=== PATIENT | female | born 1975 | race Caucasian/White ===

== ENCOUNTER 2017-07-22 15:10 | Emergency (ER) | END 2017-07-22 16:30 | disposition home or self-care (01) ==

== ENCOUNTER 2018-01-27 14:39 | Emergency (ER) | END 2018-01-27 17:22 | disposition home or self-care (01) ==

== ENCOUNTER 2018-07-10 09:41 | Emergency (ER) | payer MEDICAID ==
[~2018-07-10] VITALS: Wt 85.0 kg
[~2018-07-10 09:41] MED LIST: AZIT250T PO; FLUT9.9S NASAL; NAPR-985 PO; PHEN30SP8 MM
[2018-07-10] MEDS ORDERED: KETOROLAC 30 MG INJ IM STA (11:11)
[2018-07-10] MEDS ORDERED: CYCL10TA7 PO (11:48)
[2018-07-10] MEDS ORDERED: IBUP-1542 PO (11:48)
--- NOTE | 2018-07-10 11:52 | ERD ---
ER Documentation Chief Complaint Chief Complaint DYSURIA SINCE LAST WEEK HPI 43-year old female presents with low back pain for the last week. She does a lot of lifting at work but denies any history of acute trauma. She also feels that she is urinating frequently. She is concerned she has a kidney infection as she was told she had a kidney for infection in the past. She points to her right L4-L5 and gluteal area or iliac areas as area of pain. Pain radiates to her right buttock and leg. She describes it in triage as 0 out of 10. ROS All systems reviewed and are negative except as per history of present illness. Medications Home Meds Active Scripts Cyclobenzaprine Hcl* (Cyclobenzaprine Hcl*) 10 Mg Tablet, 10 MG PO TID, #20 TAB Prov:PIA CORREA MD 07/10/18 Ibuprofen* (Motrin*) 600 Mg Tab, 600 MG PO Q6, #20 TAB Prov:PIA CORREA MD 07/10/18 Naproxen* (Naprosyn*) 500 Mg Tablet, 500 MG PO BID PRN for PAIN AND/OR INFLAMMATION, #30 TAB Prov:STEPHEN BADILLO PA-C 01/27/18 Fluticasone Propionate (Flonase Allergy Relief) 9.9 Ml [place].susp, 1 SPRAY NASAL BID, #1 BOTTLE TO EACH NOSTRIL Prov:RAQUEL,AVI 07/22/17 Phenol/Glycerin (Chloraseptic Max [place]) 30 Ml [place], 5 SPRAY MM Q2H PRN for SORE THROAT, #1 BOTTLE Prov:RAQUEL,AVI 07/22/17 Azithromycin* (Zithromax*) 250 Mg Tablet, 250 MG PO .ZPACK DIRECTED, #6 TAB TAKE 500 MG (2 TABS) THE FIRST DAY THEN 250 MG (1 TAB) DAYS 2-5 Prov:RAQUEL,AVI 07/22/17 Allergies Allergies: Coded Allergies: No Known Allergy (Verified , 01/27/18) PMhx/Soc Medical and Surgical Hx: pt denies Medical Hx, pt denies Surgical Hx Hx Alcohol Use: No Hx Substance Use: No Hx Tobacco Use: No Smoking Status: Never smoker FmHx Family History: No diabetes, No coronary disease, No other Physical Exam Vitals Vital Signs Date Temp Pulse Resp B/P (MAP) Pulse Ox O2 O2 Flow FiO2 Time Delivery Rate 07/10/18 98.9 71 18 131/82 99 Room Air 11:55 (98) 07/10/18 98.9 79 18 130/71 99 09:42 (90) Physical Exam Const: No acute distress Head: Atraumatic Eyes: Normal Conjunctiva ENT: Normal External Ears, Nose and Mouth. Neck: Full range of motion. No meningismus. Resp: Clear to auscultation bilaterally Cardio: Regular rate and rhythm, no murmurs Abd: Soft, non tender, non distended. Normal bowel sounds Skin: No petechiae or rashes Back: No midline or flank tenderness. Tenderness right L4 L5-S1 area lumbar paraspinous muscles. Positive straight leg raise on the right. Ext: No cyanosis, or edema Neur: Awake and alert. Normal gait. No appreciable focal neurologic deficits. Psych: Normal Mood and Affect Results 24 hrs Laboratory Tests Test 07/10/18 11:21 07/10/18 11:38 POC Beta HCG, Qualitative NEGATIVE Bedside Urine pH (LAB) 6.5 Bedside Urine Protein (LAB) Negative Bedside Urine Glucose (UA) Negative Bedside Urine Ketones (LAB) 1+ Bedside Urine Blood Negative Bedside Urine Nitrite (LAB) Negative Bedside Urine Leukocyte Esterase (L Negative Current Medications Medications Dose Sig/Sd Start Time Status Last (Trade) Ordered Route PRN Stop Time Admin Dose Reason Admin Ketorolac 30 mg ONCE STAT 07/10/18 DC 07/10/18 Tromethamine IM 11:11 07/10/18 11:25 (Toradol) 11:13 Procedures/MDM Urine shows no leukocytes, nitrites, glucose, hemoglobin. HCG negative. Patient was given Toradol 30 mg IM. Patient presents with right-sided low back pain. She is concerned about a kidney infection but her urine is normal. Pain is not in the area of kidneys. Pain is likely musculoskeletal, lumbar strain or sciatica. No signs of cauda equina syndrome, epidural abscess, deficits, ischemia, additional complications. Will treat with ibuprofen, Flexeril, instructions for back exercises, primary care follow-up and return precautions. The patient was stable with no new complaints during the ER course. Clinically, there is no current evidence to suggest meningitis, sepsis, acute abdomen, pneumonia, stroke, acute coronary syndrome, pulmonary embolism, aortic dissection or any other emergent condition appearing to require further evaluation or hospitalization. Patient counseled regarding my diagnostic imp ression and care plan. Prior to discharge all questions answered. Pt agrees with treatment plan and understands strict return precautions. Pt is instructed to follow up with primary care provider within 24-48 hours. Precautionary instructions provided including instructions to return to the ER if not improving or for any worsening or changing symptoms or concerns. Departure Diagnosis: Primary Impression: Back pain Back pain location: low back pain Chronicity: acute Back pain laterality: right Sciatica presence: with sciatica Sciatica laterality: sciatica of right side Qualified Codes: M54.41 - Lumbago with sciatica, right side Condition: Stable Patient Instructions: Back Exercises, Lumbar, Back Pain W/ Sciatica [facility] Usted se clement hecho un examen mdico de control que le indica que no est en roel condicin que requiera tratamiento urgente en el Departamento de Emergencia. Un estudio ms profundo y el tratamiento de hayward condicin pueden esperar sin ningn riesgo hasta que usted sea atendida/o en el consultorio de hayward mdico o roel clnica. Es responsabilidad suya arreglar roel mark para el seguimiento del alejandro. MANEJO DE CONDICIONES NO URGENTES EN EL FUTURO 1) Si usted tiene un mdico de atencin primaria: Usted debera llamar a hayward mdico de atencin primaria antes de venir al departamento de emergencia. Despus de las horas de consultorio, hayward doctor o hayward asociado/a est disponible por telfono. El mdico o enfermero de donaldo en el servicio telefnico puede asesorarle por sherrie medio para atender el problema, o alejandro contrario se puede programar roel mark. 2) Si usted no tiene un mdico de atencin primaria: Llame al mdico o clnica de referencia que aparece abajo lisa las horas de consultorio para hacer roel mark para que le vean. CLINICAS: [facility] [phone] [facility] [phone] [facility] [phone] [place] [id number] [phone] [place] [phone] [facility]. [phone] [address] Additional Instructions: orina / rinones normal. dolor es de espalda. Cheque otro vez con hayward doctor primario en el proximo stanley or regresa para mas o nueva simptomas. PIA CORREA MD Jul 10, 2018 11:51
[2018-07-10 11:55] VITALS: BP 131/82; PULSE 71; RESP 18
== END 2018-07-10 12:20 | disposition home or self-care (01) ==
LOC: FTE 09:41
DX: M54.41 Lumbago with sciatica, right side (principal)
CPT/HCPCS: 81003; 81025; 96372; J1885; Z7502

== ENCOUNTER 2018-07-13 14:31 | Emergency (ER) | payer MEDICAID ==
[~2018-07-13] VITALS: Ht 157.5 cm; Wt 57.1 kg
[~2018-07-13 14:31] MED LIST changes: +CYCL10TA7 PO; +IBUP-1542 PO
[2018-07-13 14:35] VITALS: BP 119/82; PULSE 72; RESP 20; Ht 157.5 cm; Wt 57.1 kg
[2018-07-13] MEDS ORDERED: KETOROLAC 60 MG INJ IM STA (16:01)
[2018-07-13] MEDS ORDERED: HYDR-4011 PO (16:06)
[2018-07-13] MEDS ORDERED: CYCL10TA7 PO (16:06)
[2018-07-13] MEDS ORDERED: DICL100G37 TOP (16:06)
[2018-07-13] MEDS ORDERED: NAPR-985 PO (16:06)
--- NOTE | 2018-07-13 16:11 | ERD ---
ER Documentation Chief Complaint Chief Complaint Complains of back pain x 3 days HPI This is a 43-year-old female presents ED with complaints of low back pain times 4 days. Patient states that 4 days ago her pots and pans He fell on the floor and when she went down to pick them up she hurt her low back. Patient denies any fever, chills, chest pain, shortness breath, dysuria, hematuria, diarrhea, constipation, bowel/bladder incontinence, tingling, numbness sensation, saddle paresthesias and other symptoms. No history of IV drug use. ROS All systems reviewed and are negative except as per history of present illness. Medications Home Meds Active Scripts Hydrocodone/Acetaminophen ([place] 5-325 Tablet) 1 Each Tablet, 1 TAB PO Q6H PRN for PAIN, #3 TAB Prov:EDWAR KYLE PA-C 07/13/18 Diclofenac Sodium* (Voltaren* Gel) 1% -100 Gm Gel, 2 GM TOP QID, #1 TUB Prov:EDWAR KYLE PA-C 07/13/18 Cyclobenzaprine Hcl* (Cyclobenzaprine Hcl*) 10 Mg Tablet, 10 MG PO TID, #15 TAB Prov:EDWAR KYLE PA-C 07/13/18 Naproxen* (Naprosyn*) 500 Mg Tablet, 500 MG PO BID PRN for PAIN AND/OR INFLAMMATION, #30 TAB Prov:EDWAR KYLE PA-C 07/13/18 Cyclobenzaprine Hcl* (Cyclobenzaprine Hcl*) 10 Mg Tablet, 10 MG PO TID, #20 TAB Prov:PIA CORREA MD 07/10/18 Ibuprofen* (Motrin*) 600 Mg Tab, 600 MG PO Q6, #20 TAB Prov:PIA CORREA MD 07/10/18 Naproxen* (Naprosyn*) 500 Mg Tablet, 500 MG PO BID PRN for PAIN AND/OR INFLAMMATION, #30 TAB Prov:STEPHEN BADILLO PA-C 01/27/18 Fluticasone Propionate (Flonase Allergy Relief) 9.9 Ml [place].susp, 1 SPRAY NASAL BID, #1 BOTTLE TO EACH NOSTRIL Prov:AVI GARCÍA 07/22/17 Phenol/Glycerin (Chloraseptic Max [place]) 30 Ml [place], 5 SPRAY MM Q2H PRN for SORE THROAT, #1 BOTTLE Prov:RAQUEL,AVI 07/22/17 Azithromycin* (Zithromax*) 250 Mg Tablet, 250 MG PO .ESSENCE DIRECTED, #6 TAB TAKE 500 MG (2 TABS) THE FIRST DAY THEN 250 MG (1 TAB) DAYS 2-5 Prov:RAQUEL,AVI 07/22/17 Allergies Allergies: Coded Allergies: No Known Allergy (Verified , 01/27/18) PMhx/Soc Medical and Surgical Hx: pt denies Medical Hx, pt denies Surgical Hx Hx Alcohol Use: No Hx Substance Use: No Hx Tobacco Use: No FmHx Family History: No diabetes Physical Exam Vitals Vital Signs Date Temp Pulse Resp B/P (MAP) Pulse Ox O2 O2 Flow FiO2 Time Delivery Rate 07/13/18 98.5 72 20 119/82 98 14:35 (94) Physical Exam Physical Exam Vitals signs: Reviewed by me. General: Well developed, well nourished, in no acute distress. Patient is awake and alert. Head: Normocephalic, atraumatic. Eyes: Normal conjunctiva, Pupils PERRLA, EOM intact grossly ENT: Pharynx is clear, Moist mucous membranes, external ears, nose and mouth normal Neck: Supple, no masses, lymphadenopathy or JVD Respiratory: Clear to auscultation bilaterally with no wheezing, rhonchi, rales, no distress Cardiovascular: RRR, no murmurs, rubs, or gallops Back: No midline tenderness. No thoracic or lumbar midline tenderness, there is mild tenderness palpation along the paravertebral muscles in the lumbar spine, no decreased range of motion flexion, extension and left and right lateral rotation Neurologic: Alert and oriented, moving all extremities, normal speech, no focal weakness, no cerebellar signs. Normal mentation Skin: warm and dry, No rash Psych: Normal mood Results 24 hrs Current Medications Medications Dose Sig/Sd Start Time Status Last (Trade) Ordered Route PRN Stop Time Admin Dose Reason Admin Ketorolac 60 mg ONCE STAT 07/13/18 DC Tromethamine IM 16:01 (Toradol) 07/13/18 16:02 1 tab ONCE ONCE 07/13/18 DC Acetaminophen PO 16:30 / 07/13/18 16:30 Hydrocodone Bitart ([place] (5/325)) 10 mg ONCE ONCE 07/13/18 Cyclobenzapri PO 16:30 ne HCl 07/13/18 16:31 (Flexeril) Procedures/MDM ER COURSE: The patient was given [Toradol and Flexeril The medication was well tolerated and the patient reports improvement in symptoms. The patient was stable throughout ED course. I kept the patient and/or family informed of laboratory and diagnostic imaging results throughout the emergency room course. The patient was promptly evaluated and a treatment plan was devised based on H&P and other data. This plan was discussed with the patient who agreed and had no further questions or concerns prior to discharge. MEDICAL DECISION MAKIN-year-old female presents to ED with low back pain times 4 days. Given mechanism of injury and location of back pain being along the paravertebral muscles this is likely a muscle strain or muscle related pain. History and physical examination other data not consistent with processing including cauda equina syndrome, cord compression, infiltrative etiology, infectious etiology, epidural abscess, fracture, obstructive pyelonephritis, abdominal aortic aneurysm. Vitals are stable and patient can be managed outpatient with close follow-up. Advised patient to follow up with primary care in the next 48 hours. return to ED with any worsening symptoms DISPOSITION PLAN: We discussed follow up with the patient's primary care doctor within 24 to 48 hours. Patient counseled regarding my diagnostic impression and care plan. Pr ior to discharge all questions answered. Pt agrees with treatment plan and understands strict return precautions. Precautionary instructions provided including instructions to return to the ER if not improving or for any worsening or changing symptoms or concerns. SPECIALIST FOLLOW UP RECOMMENDED: None Patient has been advised to follow up with primary care in 1-2 days. Disclaimer: Inadvertent spelling and grammatical errors are likely due to EHR/dictation software use and do not reflect on the overall quality of patient care. Also, please note that the electronic time recorded on this note does not necessarily reflect the actual time of the patient encounter. Departure Diagnosis: Primary Impression: Back pain Back pain location: low back pain Chronicity: acute Back pain laterality: bilateral Sciatica presence: without sciatica Qualified Codes: M54.5 - Low back pain Condition: Stable Patient Instructions: Back Pain (Acute Or Chronic) Referrals: [facility] Usted se clement hecho un examen mdico de control que le indica que no est en roel condicin que requiera tratamiento urgente en el Departamento de Emergencia. Un estudio ms profundo y el tratamiento de hayward condicin pueden esperar sin ningn riesgo hasta que usted sea atendida/o en el consultorio de hayward mdico o roel clnica. Es responsabilidad suya arreglar roel mark para el seguimiento del alejandro. MANEJO DE CONDICIONES NO URGENTES EN EL FUTURO 1) Si usted tiene un mdico de atencin primaria: Usted debera llamar a hayward mdico de atencin primaria antes de venir al departamento de emergencia. Despus de las horas de consultorio, hayward doctor o hayward asociado/a est disponible por telfono. El mdico o enfermero de donaldo en el servicio telefnico puede asesorarle por sherrie medio para atender el problema, o alejandro contrario se puede programar roel mark. 2) Si usted no tiene un mdico de atencin primaria: Llame al mdico o clnica de referencia que aparece abajo lisa las horas de consultorio para hacer roel mark para que le vean. CLINICAS: [facility] [phone] [facility] [phone] [address] [facility] [phone] [address] [facility]. [place] [id number] [phone] [facility]. [place] [id number] [phone] [facility]. [phone] [address] Additional Instructions: Paciente aconseja volver a Departamento de urgencias inmediatamente para sntomas nuevos o que empeoran . Paciente aconseja posteriores con el PCP en 1-2 de la cruz . Paciente verbaliza la comprehensin y est de acuerdo con el tratamiento y el curso de accin. Si el paciente no tiene ninguna de atencin primaria pueden seguir con [facility] [address] [place] [address] o [facility] + [address] [address] EDWAR KYLE PA-C Jul 13, 2018 16:11
[2018-07-13] MEDS ORDERED: HYDROCODONE/APAP (5/325) TAB PO ONE (16:30)
[2018-07-13] MEDS ORDERED: CYCLOBENZAPRINE 10 MG TAB PO ONE (16:30)
== END 2018-07-13 16:44 | disposition home or self-care (01) ==
LOC: FTE 14:31
DX: M54.5 Low back pain (principal)
CPT/HCPCS: 81025; 96372; J1885; Z7502; Z7610